=== PATIENT | female | born 1945 | race Caucasian/White ===

== ENCOUNTER → 2016-12-21 | Outpatient (CLI) | payer OTHER | LOC: FIMAGING 08:10 | DX: Z12.31 Encounter for screening mammogram for malignant neoplasm of breast (principal) | CPT/HCPCS: G0202 ==

== ENCOUNTER 2016-12-22 12:56 | Emergency (ER) | payer OTHER ==
[2016-12-22 13:01] VITALS: RESP 16
--- NOTE | 2016-12-22 13:47 | CPEKG ---
Heart Rate: 59 RR Interval: 1017 P-R Interval: 176 QRSD Interval: 78 QT Interval: 452 QTC Interval: 448 P [place]: 69 QRS [place]: 6 T Wave [place]: 62 EKG Severity - NORMAL ECG - EKG Impression: SINUS RHYTHM Electronically Signed By: Bhavna Loving 22-Dec-2016 20:51:48
--- NOTE | 2016-12-22 13:50 | EDPHY ---
H & P Time Seen by Provider: 12/22/16 13:41 HPI/ROS: CHIEF COMPLAINT: Chest pain HISTORY OF PRESENT ILLNESS: This patient is a 71 year old female who presents to the Emergency Department following an episode of acute chest pain at 1100 today. She was sitting at her computer when she experienced acute onset centralized chest pain localized just between her breasts lasting from approximately 5 minutes before subsiding to a dull ache persisting for 30 minutes. She denies any exacerbating or alleviating factors at that time. After the episode, she describes "acid reflux" with a burning sensation radiating superiorly from her upper abdomen to her throat which has persisted to the present. Upon arrival, she also complains of a mild headache and lightheadedness. She denies nausea, vomiting, or abdominal pain. She exercises regularly and reports no chest discomfort during exercise. She has a history of prior CVA for which she takes a baby aspirin daily; she took one dose following episode of chest pain this morning. Cardiac risk factors: Non-smoker, no hypertension, no hyperlipidemia. No familial history of cardiac disease. REVIEW OF SYSTEMS: Constitutional: No fever, no chills Eyes: No visual changes ENT: No sore throat Respiratory: No cough, no shortness of breath Cardiac: Chest pain as above Gastrointestinal: "Acid reflux" sensation, no nausea, no vomiting, no abdominal pain Genitourinary: No hematuria, no dysuria Musculoskeletal: No leg pain or swelling Skin: No rash Neurological: No headache, no numbness, no weakness Psychiatric: +anxiety, no depression Past Medical/Surgical History: CVA. PCP: Dr. Carmen Carrillo. Social History: Never smoked. . Reports she is under additional stress recently. Smoking Status: Never smoked Physical Exam: General Appearance: Alert, no distress Eyes: Pupils equal and round, no conjunctival pallor or injection ENT, Mouth: Mucous membranes moist Neck: Normal inspection Respiratory: Lungs are clear to auscultation Cardiovascular: Regular rate and rhythm Gastrointestinal: Abdomen is soft and non- tender Neurological: A&O, nonfocal, normal gait Skin: Warm and dry, no rash Extremities: Nontender, no pedal edema Psychiatric: Anxious affect Constitutional: Initial Vital Signs Temperature (C) 36.5 C 12/22/16 12:57 Heart Rate 66 12/22/16 12:57 Respiratory Rate 16 12/22/16 12:57 Blood Pressure 115/65 12/22/16 12:57 O2 Sat (%) 97 12/22/16 12:57 O2 Delivery Mode Room Air Allergies/Adverse Reactions: No Known Allergies Allergy (Unverified 07/24/12 13:00) Home Medications: Medication Instructions Recorded Estradiol [Estradiol 1 MG (*)] 1 mg PO DAILY 07/24/12 Pharmacy Completed-See Comment 07/24/12 07/24/12 Aspirin [Aspirin 81mg (*)] 81 mg PO DAILY #0 tab 07/27/12 Medical Decision Making - Diagnostics EKG Interpretation: EKG interpreted by me reveals normal sinus rhythm, rate 59, no ST/T changes. Interpretation: normal EKG Imaging: Study: X-ray of the chest Indication: Pain Results: X-ray of the chest was obtained. The results of the study are: 1. No evidence for pneumonia. 2. Mild T8 compression, new since 2010. If there is concern that this may be acute, then consider MRI of the thoracic spine (without contrast) to assess for bone marrow edema. The study was read by the radiologist, Dr. Rey Barrera. I viewed the images myself on the PACS system. ED Course/Re-evaluation: This patient presents following an episode of acute centralized chest pain presenting at 1100 today and subsiding spontaneously after 30 minutes. She experienced a subsequent burning sensation possibly suggestive of acid reflux. Her exam is benign. Will proceed with cardiac workup including chest x-ray, EKG , and labs including troponin. Will also administer Gi Cocktail for suspicion of possible acid reflux as an explanation for the patient's symptoms. 1440: On reevaluation, the patient's pain has resolved completely following administration of Gi Cocktail. I discussed her lab and imaging results. I recommended that the patient stay for a repeat troponin; she declines this. She understands that declining to stay places her at risk of acute coronary event, dysrhythmia, or . She has been instructed to call this afternoon to schedule a follow-up cardiology appointment as soon as possible and is agreeable to this. She understands customary return precautions. Differential Diagnosis: Differential diagnosis includes though it is not limited to pneumonia, pneumothorax, pulmonary embolism, aortic dissection, pericarditis, acute coronary syndrome. - Data Points Laboratory Results: Laboratory Results 12/22/16 13:48 12/22/16 13:48 12/22/16 12/22/16 13:48 13:48 WBC 5.19 10^3/uL 10^3/uL (3.80-9.50) RBC 4.51 10^6/uL 10^6/uL (4.18-5.33) Hgb 14.3 g/dL g/dL (12.6-16.3) Hct 44.3 % % (38.0-47.0) MCV 98.2 fL fL (81.5-99.8) MCH 31.7 pg pg (27.9-34.1) MCHC 32.3 g/dL L g/dL (32.4-36.7) RDW 12.1 % % (11.5-15.2) Plt Count 197 10^3/uL 10^3/uL (150-400) MPV 10.2 fL fL (8.7-11.7) Neut % (Auto) 62.0 % % (39.3-74.2) Lymph % (Auto) 27.7 % % (15.0-45.0) [place] % (Auto) 7.9 % % (4.5-13.0) Eos % (Auto) 1.2 % % (0.6-7.6) Baso % (Auto) 0.8 % % (0.3-1.7) Nucleat RBC Rel Count 0.0 % % (0.0-0.2) Absolute Neuts (auto) 3.22 10^3/uL 10^3/uL (1.70-6.50) Absolute Lymphs (auto) 1.44 10^3/uL 10^3/uL (1.00-3.00) Absolute Monos (auto) 0.41 10^3/uL 10^3/uL (0.30-0.80) Absolute Eos (auto) 0.06 10^3/uL 10^3/uL (0.03-0.40) Absolute Basos (auto) 0.04 10^3/uL 10^3/uL (0.02-0.10) Absolute Nucleated RBC 0.00 10^3/uL 10^3/uL (0-0.01) Immature Gran % 0.4 % % (0.0-1.1) Immature Gran # 0.02 10^3/uL 10^3/uL (0.00-0.10) Sodium 138 mEq/L mEq/L (134-144) Potassium 5.3 mEq/L H mEq/L (3.5-5.2) Chloride 103 mEq/L mEq/L (97-110) Carbon Dioxide 26 mEq/l mEq/l (22-31) Anion Gap 9 mEq/L mEq/L (8-16) BUN 16 mg/dL mg/dL (7-23) Creatinine 0.7 mg/dL mg/dL (0.6-1.0) Estimated GFR > 60 Glucose 79 mg/dL mg/dL (70-100) Calcium 9.2 mg/dL mg/dL (8.5-10.4) Troponin I 0.032 ng/mL ng/mL (0-0.034) NT-Pro-B Natriuret Pep 123 pg/mL pg/mL (0-125) Specimen Hemolysis 103 Medications Given: Discontinued Medications Al Hydroxide/Mg Hydroxide (Maalox Susp) 30 ml PO ONCE ONE Stop: 12/22/16 13:57 Last Admin: 12/22/16 14:20 Dose: 30 ml Hyoscyamine Sulfate (Levsin, Hyomax-Sl) 0.25 mg PO ONCE ONE Stop: 12/22/16 13:57 Last Admin: 12/22/16 14:20 Dose: 0.25 mg Lidocaine (Lidocaine 2% Viscous) 15 ml PO ONCE ONE Stop: 12/22/16 13:57 Last Admin: 12/22/16 14:20 Dose: 15 ml Departure - Departure Disposition: Home, Routine, Self-Care Clinical Impression: Atypical chest pain Condition: Good Instructions: Chest Pain (ED) Additional Instructions: 1. Call this afternoon to schedule an appointment with Dr. Cornell, healthcare management consultant, as soon as possible for further evaluation of your chest pain. 2. Return to the Emergency Department immediately if you experience recurrence of chest pain, sweating, nausea, lightheadedness, or other serious concerns. Referrals: Ariel Cornell MD [Medical Doctor] - As per Instructions Report Scribed for: Bhavna Loving Report Scribed by: Kalyn Hsu Date of Report: 12/22/16 Time of Report: 13:51 Physician Review and Approval Statement: 12/22/16 13:51 Portions of this note were transcribed by a medical lab scientist. I personally performed a history, physical exam, medical decision making, and confirmed accuracy of information the transcribed note.
[2016-12-22 13:55] LABS: % IMMATURE GRANULYOCYTES 0.4 % (0.0-1.1); ABSOLUTE IMMATURE GRANULOCYTES 0.02 10^3/uL (0.00-0.10); ADD DIFF? NO; ADD MORPH? NO; ADD SCAN? NO; ATYPICAL LYMPHOCYTE FLAG 20 (0-99); FRAGMENT RBC FLAG 0 (0-99); HEMATOCRIT 44.3 % (38.0-47.0); HEMOGLOBIN 14.3 g/dL (12.6-16.3); LEFT SHIFT FLG 0 (0-99); LIPEMIA HEMOLYSIS FLAG 80 (0-99); MEAN CELL HEMOGLOBIN 31.7 pg (27.9-34.1); MEAN CELL HEMOGLOBIN CONCENTR. 32.3 g/dL (32.4-36.7); MEAN CELL VOLUME 98.2 fL (81.5-99.8); MEAN PLATELET VOLUME 10.2 fL (8.7-11.7); PLATELET CLUMPS FLAG 20 (0-99); PLATELET COUNT 197 10^3/uL (150-400); RED BLOOD CELL COUNT 4.51 10^6/uL (4.18-5.33); RED CELL DISTRIBUTION WIDTH 12.1 % (11.5-15.2)
[2016-12-22] MEDS ORDERED: HYOSCYAMINE SULFATE 0.125 MG TAB PO ONE (13:56)
[2016-12-22] MEDS ORDERED: MAG HYDROX/AL HYDROX/SIMETH 30 ML UDCUP PO ONE (13:56)
[2016-12-22] MEDS ORDERED: LIDOCAINE 2% VISCOUS 15 ML UDCUP PO ONE (13:56)
[2016-12-22 14:23] LABS: TROPONIN I 0.032 ng/mL (0-0.034)
[2016-12-22 14:25] LABS: ANION GAP 9 mEq/L (8-16); CALCIUM 9.2 mg/dL (8.5-10.4); CARBON DIOXIDE 26 mEq/l (22-31); CHLORIDE 103 mEq/L (97-110); CREATININE 0.7 mg/dL (0.6-1.0); GLOMERULAR FILTRATION RATE > 60; GLUCOSE 79 mg/dL (70-100); POTASSIUM 5.3 mEq/L (3.5-5.2); SODIUM 138 mEq/L (134-144); SPECIMEN HEMOLYSIS 103
[2016-12-22 14:57] VITALS: BP 111/59; PULSE 63; TEMP 98.1; O2SAT 92
== END 2016-12-22 14:57 | disposition home or self-care (01) ==
DX: R07.89 Other chest pain (principal); Z86.73 Personal history of transient ischemic attack (TIA), and cerebral infarction without residual deficits; Z79.82 Long term (current) use of aspirin

== ENCOUNTER → 2017-11-06 | Outpatient (CLI) | payer OTHER | LOC: BMCIMAGING 07:53 | PROVIDERS: ATTEND Internal Medicine | DX: D17.71 Benign lipomatous neoplasm of kidney (principal) ==

== ENCOUNTER → 2018-02-16 | Outpatient (CLI) | payer OTHER | LOC: FIMAGING 12:14 | PROVIDERS: ATTEND Internal Medicine | DX: Z12.31 Encounter for screening mammogram for malignant neoplasm of breast (principal) ==

== ENCOUNTER → 2018-09-11 | Outpatient (CLI) | payer OTHER | LOC: BMCIMAGING 18:33 | PROVIDERS: ATTEND Emergency Medicine | DX: R05 Cough (principal) ==